=== PATIENT | male | born 1945 ===

== ENCOUNTER 2020-02-08 15:31 | Outpatient (REF) | payer MEDICARE, MEDICAID, SELFPAY ==
[2020-02-10 17:28] LABS: COVID-19 RT-PCR Result Not Detected ((See Note))
== END 2020-02-08 15:51 ==
LOC: EP 15:31
PROVIDERS: Visit Provider Nurse Practitioner Adult Health
DX: Z03.818 Encounter for observation for suspected exposure to other biological agents ruled out (principal)
CPT/HCPCS: U0003

== ENCOUNTER 2020-02-15 10:08 | Outpatient (REF) | payer MEDICARE, MEDICAID, SELFPAY ==
[2020-02-16 18:28] LABS: COVID-19 RT-PCR Result Not Detected ((See Note))
== END 2020-02-15 10:28 ==
LOC: LBN 10:08
PROVIDERS: Visit Provider Nurse Practitioner Adult Health
DX: Z03.818 Encounter for observation for suspected exposure to other biological agents ruled out (principal)
CPT/HCPCS: U0003